=== PATIENT | female | born 1960 | race Caucasian/White ===

== ENCOUNTER 2025-01-05 13:48 | Day surgery (SDC) | payer BC ==
[~2025-01-05 13:48] MED LIST: LACTATED RINGERS 1,000 ML IV SCH
[2025-01-05] MEDS: IV FLUID CONTINUATION 1,000 ML IV ONE (14:43)
[2025-01-05 14:53] VITALS: RESP 16; TEMP 97.2
[2025-01-05] MEDS ORDERED: PROPOFOL 10 MG/ML 20 ML VIAL IV ONE (15:39)
--- NOTE | 2025-01-05 15:56 | P.PCN ---
Date of Procedure: 01/05/25 Procedure(s) Performed: BRIEF HISTORY: Patient is a 64-year-old pleasant white female scheduled for an elective colonoscopy as a part of screening for colon cancer and family history of colon cancer. Her father was diagnosed with colon cancer at age 60. PROCEDURE PERFORMED: Colonoscopy with biopsy. PREOPERATIVE DIAGNOSIS: Screening for colon cancer/family history of colon cancer. IV sedation per Anesthesia. PROCEDURE: After informed consent was obtained, the patient, was brought into the endoscopy unit. IV sedation was administered by Anesthesia under continuous monitoring. Digital rectal examination was normal. Initially the Olympus CF-160 flexible video colonoscope was then inserted in the rectum, gradually advanced into the cecum without any difficulty. Careful examination was performed as the scope was gradually being withdrawn. Ileocecal valve and the appendiceal orifice were visualized and appeared normal. Prep was excellent. Mucosa of the cecum, ascending colon, appeared normal in the transverse colon there was a 4 mm polyp that was removed by cold biopsy. Rest of the transverse colon, descending colon, appeared normal. The sigmoid colon was a 3 mm and a 4 mm sessile polyp removed by cold biopsy. Moderate sigmoid diverticulosis seen. Rest of the sigmoid colon, and rectum appeared normal. Retroflexion was performed in the rectum and no lesions were seen. The patient tolerated the procedure well. IMPRESSION: 4 mm transverse colon polyp status post cold biopsy 3 millimeter and 4 mm sigmoid colon polyp status post cold biopsy Moderate sigmoid diverticulosis RECOMMENDATIONS: Findings of this examination were discussed with the patient as well as her family. She was advised to follow the biopsy results and have repeat colonoscopy in 5 years because of family history of colon cancer.
[2025-01-05 16:06] VITALS: BP 126/82; PULSE 80
== END 2025-01-05 16:35 | disposition home or self-care (01) ==
LOC: ORWHC2ENDO 13:48
PROVIDERS: ATTEND Internal Medicine Gastroenterology
DX: Z12.11 Encounter for screening for malignant neoplasm of colon (principal); Z80.0 Family history of malignant neoplasm of digestive organs; D12.3 Benign neoplasm of transverse colon; K57.30 Diverticulosis of large intestine without perforation or abscess without bleeding
CPT/HCPCS: 45380; 88305